=== PATIENT | male | born 1950 | race African-American/Black ===

== ENCOUNTER 2018-03-15 09:53 | Outpatient (CLI) | payer OTHER ==
--- NOTE | 2018-03-15 12:33 | ULT ---
ULTRASOUND WITH DOPPLER DUPLEX VENOUS LOWER EXTREMITY RIGHT: HISTORY: A 67-year-old male with a nontraumatic right ankle palpable mass, right lower extremity swelling. TECHNIQUE: Color flow Doppler, spectral waveform analysis of pulsed Doppler, and waller-scale imaging with val brittni and augmentation were used to evaluate the right common femoral, femoral, popliteal, posterior t ibial, and superficial femoral veins, and the proximal portions of the profunda femoral and greater s aphenous veins. FINDINGS: There is normal compressibility, demonstration of blood flow by color Doppler and pulsed Doppler, and response to augmentation, in all interrogated veins. There is an approximately 2 x 1.5 cm heterogen eously intermediate echogenicity mass in the soft tissues, labeled as right knot medial upper ankl e. Its margins are irregular. There is soft tissue edema in the soft tissues of the upper ankle, medially. IMPRESSION: 1. No deep vein thrombosis in the right lower extremity. 2. Solid-appearing 2 x 1.5 cm mass at the medial upper ankle, corresponding to the palpable abnormal ity. Etiology unknown. 3. Surrounding soft tissue edema. jnr POS: [facility]
== END 2018-03-15 09:54 | disposition home or self-care (01) ==
LOC: NAV ULT 09:53
PROVIDERS: ATTEND Nurse Practitioner Adult Health
DX: M79.89 Other specified soft tissue disorders (principal); R60.0 Localized edema